=== PATIENT | male | born 1935 | race Caucasian/White ===

== ENCOUNTER 2019-03-25 15:52 | Observation (INO) | payer MEDICARE ==
[~2019-03-25] VITALS: Ht 167.6 cm; Wt 87.0 kg
[2019-03-25] MEDS ORDERED: LEUP22.52 IM (16:22)
[2019-03-25] MEDS ORDERED: HYDROCHLOROTH12.5 MG PO (16:22)
[2019-03-25] MEDS ORDERED: RIVA20TA PO (16:22)
[2019-03-25] MEDS ORDERED: LOSA25TA25 PO (16:22)
[2019-03-25] MEDS ORDERED: ACET-1600 PO (16:22)
[2019-03-25 16:23] VITALS: BP 133/78
[2019-03-25] MEDS ORDERED: PROPOFOL 50 ML ONE ×2 (17:22→18:32)
[2019-03-25] MEDS ORDERED: FENTANYL PF 250 MCG/5ML ONE (17:39)
[2019-03-25 17:53] LABS: BASOPHILS # (AUTO) 0.04 x10^3/uL (0-0.1); BASOPHILS % (AUTO) 1 % (0-1); EOSINOPHILS # (AUTO) 0.14 x10^3/uL (0-0.4); EOSINOPHILS % (AUTO) 2 % (1-7); LYMPHOCYTES # (AUTO) 1.44 x10^3/uL (1-3.4); LYMPHOCYTES % (AUTO) 18 % (22-44); MD NO; MEAN CORPUSCULAR HEMOGLOBIN 30.4 pg (27.5-34.5); MEAN CORPUSCULAR HGB CONC 33.2 g/dL (33.2-36.2); MEAN CORPUSCULAR VOLUME 91.5 fL (81-97); MEAN PLATELET VOLUME 6.5 fL (7.4-10.4); MONOCYTES # (AUTO) 0.77 x10^3/uL (0.2-0.8); MONOCYTES % (AUTO) 10 % (2-9); NEUTROPHILS # (AUTO) 5.62 x10^3/uL (1.8-6.8); NEUTROPHILS % (AUTO) 70 % (42-75); PLATELET COUNT 184 x10^3/uL (130-400); RED BLOOD COUNT 4.87 x10^6/uL (4.38-5.82); RED CELL DISTRIBUTION WIDTH 14.4 % (9.4-14.8)
[2019-03-25] MEDS ORDERED: DIPHENHYDRAMINE 50 MG/ML, 1ML IVPush PRN (18:00)
[2019-03-25] MEDS ORDERED: ACETAMINOPHEN 325 MG TABLET PO PRN (18:00)
[2019-03-25] MEDS ORDERED: FENTANYL PF 100 MCG/2ML IV PRN (18:00)
[2019-03-25] MEDS ORDERED: DIAZEPAM 5 MG/ML, 2ML IVPush PRN (18:00)
[2019-03-25] MEDS ORDERED: ONDANSETRON ODT 8 MG PO PRN (18:00)
[2019-03-25] MEDS ORDERED: ONDANSETRON 2MG/ML, 2ML IV PRN ×2 (18:00→22:00)
[2019-03-25] MEDS ORDERED: OXYcodone 5 MG/5 ML ORAL.SOL UDC PO PRN (18:00)
[2019-03-25] MEDS ORDERED: EPHEDRINE 50 MG/ML, 1ML IVPush PRN (18:00)
[2019-03-25] MEDS ORDERED: MIDAZOLAM 1 MG/ML, 2ML IV PRN (18:00)
[2019-03-25] MEDS ORDERED: EPHEDRINE 50 MG/ML, 1ML IM PRN (18:00)
[2019-03-25] MEDS ORDERED: MORPHINE SULFATE 4 MG/ML, 1ML IVPush PRN (18:00)
[2019-03-25 18:03] LABS: INTERNATIONAL NORMALIZED RATIO 1.02 (0.93-1.1); PROTHROMBIN TIME 10.7 Seconds (9.6-11.5)
[2019-03-25 18:04] LABS: ALANINE AMINOTRANSFERASE 23 U/L (12-78); ALBUMIN 3.7 g/dL (3.4-5.0); ANION GAP 7 mmol/L (5-15); CALCIUM 9.2 mg/dL (8.5-10.1); CHLORIDE 99 mmol/L (98-107); CREATININE 1.08 mg/dL (0.7-1.3)
[2019-03-25 18:06] LABS: ALKALINE PHOSPHATASE 65 U/L (45-117); BILIRUBIN,TOTAL 1.2 mg/dL (0.2-1.0); TOTAL PROTEIN 7.8 g/dL (6.4-8.2)
[2019-03-25] MEDS ORDERED: CEFAZOLIN 1,000 MG ONE (19:47)
[2019-03-25] MEDS ORDERED: ONDANSETRON 2MG/ML, 2ML ONE (19:47)
[2019-03-25] MEDS ORDERED: PROPOFOL 10 MG/ML, 20ML ONE (19:47)
[2019-03-25] MEDS ORDERED: DEXAMETHASONE 4 MG/ML, 1ML ONE (19:47)
[2019-03-25] MEDS ORDERED: GLYCOPYRROLATE 0.2MG/1ML, 5ML ONE (19:47)
[2019-03-25] MEDS ORDERED: ROCURONIUM 10MG/ML,5ML ONE (19:47)
[2019-03-25] MEDS ORDERED: SUCCINYLCHOLINE 20 MG/ML, 10ML ONE (19:47)
[2019-03-25] MEDS ORDERED: NEOSTIGMINE 1 MG/ML, 10ML ONE (19:47)
[2019-03-25] MEDS ORDERED: LOSARTAN 25MG TABLET PO SCH (21:57)
[2019-03-25] MEDS ORDERED: RIVAROXABAN 20 MG TABLET PO SCH (21:58)
[2019-03-25] MEDS ORDERED: OXYcodone/APAP 5/325MG TABLET PO PRN (22:00)
[2019-03-25] MEDS ORDERED: morphine SULFATE 10 MG/ML, 1ML IV PRN (22:00)
[2019-03-25] MEDS ORDERED: PROMETHAZINE 25 MG/ML, 1ML IM PRN (22:00)
[2019-03-26 00:19] VITALS: BP 108/74
[2019-03-26 04:06] VITALS: BP 127/74
[2019-03-26 07:46] VITALS: BP 118/67
[2019-03-26] MEDS ORDERED: HYDROCHLOROTHIAZIDE 12.5 MG CAPSULE PO SCH (09:00)
[2019-03-26 13:46] VITALS: BP 89/48
== END 2019-03-26 15:00 | disposition home or self-care (01) ==
LOC: OR 15:52 → 4NOR 15:52 → EDSEX 18:00 → 4NOR 21:41 → OR 22:39 → DCLOUNGE 03-26 14:29
PROVIDERS: ADMIT Orthopaedic Surgery; ATTEND Orthopaedic Surgery
DX: S92.002A Unspecified fracture of left calcaneus, initial encounter for closed fracture (principal); W19.XXXA Unspecified fall, initial encounter; Z91.81 History of falling; Y93.89 Activity, other specified; Y92.89 Other specified places as the place of occurrence of the external cause
CPT/HCPCS: 28415; 36415; 71045; 73650; 76000; 80053; 85025; 85610; 85730; 97161; C1713; G0378; J0330; J0690; J1100; J2405; J2704; J2710; J3010

== ENCOUNTER → 2020-05-12 | Outpatient (CLI) | payer MEDICARE, BC ==
[~2020-05-12] MED LIST: ACET-1600 PO; HYDROCHLOROTH12.5 MG PO; LEUP22.52 IM; LOSA25TA25 PO; RIVA20TA PO
== END | disposition home or self-care (01) ==
LOC: ROC 07:19
PROVIDERS: ATTEND Radiology Radiation Oncology
DX: D32.0 Benign neoplasm of cerebral meninges (principal)
CPT/HCPCS: G0463

== ENCOUNTER → 2020-12-01 | Outpatient (CLI) | payer MEDICARE, BC | END | disposition home or self-care (01) | LOC: ROC 07:18 | PROVIDERS: ATTEND Radiology Radiation Oncology | DX: Z08 Encounter for follow-up examination after completed treatment for malignant neoplasm (principal); D32.0 Benign neoplasm of cerebral meninges | CPT/HCPCS: G0463 ==